=== PATIENT | male | born 1990 | race African-American/Black ===

== ENCOUNTER 2017-10-02 06:54 | Emergency (ER) | payer SELFPAY ==
[2017-10-02] MEDS ORDERED: Sodium Chloride 0.9% 2.5 ML Syringe FLUSH PRN (07:22)
[2017-10-02] MEDS ORDERED: Sodium Chloride 0.9% 10 ML Syringe FLUSH PRN (07:22)
[2017-10-02] MEDS ORDERED: Sodium Chloride 0.9% 1,000 ML IV ONE (07:22)
--- NOTE | 2017-10-02 07:33 | EDM.PDOC ---
ED HPI GENERAL MEDICAL PROBLEM - General Chief Complaint: Back Pain or Injury Stated Complaint: BACK PAIN, BLOOD IN URINE Time Seen by Provider: 10/02/17 07:03 Source of Information: Reports: Patient History Limitations: Reports: No Limitations. Denies: Uncooperative - History of Present Illness INITIAL COMMENTS - FREE TEXT/NARRATIVE: History of present illness: []Patient complained of left flank pain radiating to his left lower abdomen he is unable to state how long he's been hurting since since he has had left flank pain for months. Patient states that he has had some dark bloody stools recently. He denies any history of abdominal surgeries, kidney stones or diverticulitis. He does have a history of esophageal reflux. Patient denies any fevers, chills, nausea, vomiting or diarrhea. Review of systems: As per history of present illness and below otherwise all systems reviewed and negative. Past medical history: As per history of present illness and as reviewed below otherwise noncontributory. Surgical history: As per history of present illness and as reviewed below otherwise noncontributory. Social history: No reported history of drug or alcohol abuse. Family history: As per history of present illness and as reviewed below otherwise noncontributory. Physical exam: General: Well developed, well nourished in NAD HEENT: Atraumatic, normocephalic, pupils reactive, negative for conjunctival pallor or scleral icterus, mucous membranes moist, throat clear, neck supple, nontender, trachea midline. Lungs: Clear to auscultation, breath sounds equal bilaterally, chest nontender. Heart: S1S2, regular, negative for clicks, rubs, or JVD. Abdomen: Soft, nondistended, mild tender in the left lower quadrant with greater tenderness in the right lower quadrant with guarding, no rebound. Negative for masses or hepatosplenomegaly. Negative for costovertebral tenderness on the left or right. Pelvis: Stable nontender. Genitourinary: Deferred. Rectal: Deferred. Extremities: Atraumatic, negative for cords or calf pain. Neurovascular unremarkable. Neuro: Awake, alert, oriented. Cranial nerves II through XII unremarkable. Cerebellum unremarkable. Motor and sensory unremarkable throughout. Exam nonfocal. Skin:warm and dry Diagnostics: CBC normal, chemistry normal, lipase negative, UA negative, CT abdomen normal except for incidental 2.3 cm left hepatic lobe enhancing mass Therapeutics: IV hydration patient declined pain meds ED Course: Negative Impression: Abdominal pain NOS Prescriptions: None Plan: Tylenol or ibuprofen for pain, return immediately if symptoms worsen or change. Including fevers, chills, vomiting or worsening abdominal pain, as this may be early evolving appendicitis. Definitive disposition and diagnosis as appropriate pending reevaluation and review of above. Left Lower Back Pain Score (Numeric/FACES): 6 - Related Data Allergies Allergy/AdvReac Type Severity Reaction Status Date / Time No Known Allergies Allergy Verified 10/02/17 07:05 Home Meds: Home Meds . [No Known Home Meds] 10/02/17 [History] Past Medical History - Past Health History Medical/Surgical History: Denies Medical/Surgical History - Infectious Disease History Infectious Disease History: Reports: None Social & Family History - Family History Family Medical History: Noncontributory - Tobacco Use Smoking Status *Q: Current Every Day Smoker Years of Tobacco use: 4 Packs/Tins Daily: 1 - Caffeine Use Caffeine Use: Reports: None - Recreational Drug Use Recreational Drug Use: No ED ROS GENERAL - Review of Systems Review Of Systems: ROS reveals no pertinent complaints other than HPI. ED EXAM, GI/ABD - Physical Exam Exam: See Below (See history of present illness) Course - Vital Signs Last Recorded V/S: Last Vital Signs Temp 97.5 F 10/02/17 07:57 Pulse 56 L 10/02/17 07:57 Resp 14 10/02/17 07:57 BP 128/79 10/02/17 07:57 Pulse Ox 98 10/02/17 07:57 - Orders/Labs/Meds Orders: Active Orders 24 hr Category Date Time Status Nothing Per Oral Diet [DIET] Diet 10/02/17 Lunch Active Abdomen Pelvis w Cont [CT] Stat Exams 10/02/17 08:03 Taken URINALYSIS W/MICROSCOPIC [UA W/MICROSCOPIC] [URIN] Stat Lab 10/02/17 07:00 Ordered Sodium Chloride 0.9% [Saline Flush] Med 10/02/17 07:22 Active 10 ml FLUSH ASDIRECTED PRN Sodium Chloride 0.9% [Saline Flush] Med 10/02/17 07:22 Active 2.5 ml FLUSH ASDIRECTED PRN Saline Lock Insert [OM.PC] Stat Oth 10/02/17 07:21 Ordered Medication Orders Sodium Chloride (Saline Flush) 10 ml FLUSH ASDIRECTED PRN PRN Reason: Keep Vein Open Last Admin: 10/02/17 07:40 Dose: 10 ml Sodium Chloride (Saline Flush) 2.5 ml FLUSH ASDIRECTED PRN PRN Reason: Keep Vein Open Last Admin: 10/02/17 07:40 Dose: 2.5 ml Labs: Laboratory Tests 10/02/17 10/02/17 10/02/17 Range/Units 07:00 07:28 07:28 WBC 9.79 (4.0-11.0) K/uL RBC 5.09 (4.50-5.90) M/uL Hgb 16.1 (13.0-17.0) g/dL Hct 46.4 (38.0-50.0) % MCV 91.2 (80.0-98.0) fL MCH 31.6 (27.0-32.0) pg MCHC 34.7 (31.0-37.0) g/dL RDW Std Deviation 41.2 (28.0-62.0) fl RDW Coeff of Lashonda 12 (11.0-15.0) % Plt Count 182 (150-400) K/uL MPV 12.30 H (7.40-12.00) fL Neut % (Auto) 56.7 (48.0-80.0) % Lymph % (Auto) 31.1 (16.0-40.0) % Harding % (Auto) 7.8 (0.0-15.0) % Eos % (Auto) 3.6 (0.0-7.0) % Baso % (Auto) 0.8 (0.0-1.5) % Neut # (Auto) 5.6 (1.4-5.7) K/uL Lymph # (Auto) 3.0 H (0.6-2.4) K/uL Harding # (Auto) 0.8 (0.0-0.8) K/uL Eos # (Auto) 0.4 (0.0-0.7) K/uL Baso # (Auto) 0.1 (0.0-0.1) K/uL Nucleated RBC % 0.0 /100WBC Nucleated RBCs # 0 K/uL Sodium 139 (136-148) mmol/L Potassium 3.4 L (3.5-5.1) mmol/L Chloride 102 (98-107) mmol/L Carbon Dioxide 26.3 (21.0-32.0) mmol/L BUN 13 (7.0-18.0) mg/dL Creatinine 1.2 (0.8-1.3) mg/dL Est Cr Clr Drug Dosing 91.04 mL/min Estimated GFR (MDRD) > 60.0 ml/min Glucose 100 (74-106) mg/dL Calcium 9.0 (8.5-10.1) mg/dL Total Bilirubin 0.5 (0.2-1.0) mg/dL AST 32 (15-37) IU/L ALT 55 (14-63) IU/L Alkaline Phosphatase 65 (46-116) U/L Total Protein 7.8 (6.4-8.2) g/dL Albumin 4.3 (3.4-5.0) g/dL Globulin 3.5 (2.0-3.5) g/dL Albumin/Globulin Ratio 1.2 L (1.3-2.8) Lipase 134 (73-393) U/L Urine Color DARK YELLOW Urine Appearance HAZY Urine pH 5.5 (5.0-8.0) Ur Specific [place] >= 1.030 (1.001-1.035) Urine Protein NEGATIVE (NEGATIVE) mg/dL Urine Glucose (UA) NEGATIVE (NEGATIVE) mg/dL Urine Ketones NEGATIVE (NEGATIVE) mg/dL Urine Occult Blood NEGATIVE (NEGATIVE) Urine Nitrite NEGATIVE (NEGATIVE) Urine Bilirubin SMALL H (NEGATIVE) Urine Ictotest NEGATIVE Urine Urobilinogen 0.2 (<2.0) EU/dL Ur Leukocyte Esterase NEGATIVE (NEGATIVE) Urine RBC 0-2 (0-2/HPF) Urine WBC 0-3 (0-5/HPF) Ur Epithelial Cells RARE (NONE-FEW) Amorphous Sediment LIGHT (NEGATIVE) Urine Bacteria FEW (NEGATIVE) Urine Mucus LIGHT (NONE-MOD) Meds: Medications Generic Name Dose Route Start Last Admin Trade Name Freq PRN Reason Stop Dose Admin Sodium Chloride 10 ml 10/02/17 07:22 10/02/17 07:40 Saline Flush FLUSH 10 ml ASDIRECTED PRN Administration Keep Vein Open Sodium Chloride 2.5 ml 10/02/17 07:22 10/02/17 07:40 Saline Flush FLUSH 2.5 ml ASDIRECTED PRN Administration Keep Vein Open Discontinued Medications Generic Name Dose Route Start Last Admin Trade Name Brenna PRN Reason Stop Dose Admin Sodium Chloride 1,000 mls @ 999 mls/hr 10/02/17 07:22 10/02/17 07:39 Normal Saline IV 10/02/17 08:22 999 mls/hr .Bolus ONE Administration Iopamidol 95 ml 10/02/17 08:13 Isovue Multipack-370 (76%) IVPUSH 10/02/17 08:14 ONETIME STA Departure - Departure Time of Disposition: 09:13 Disposition: Home, Self-Care 01 Condition: Good Clinical Impression: Abdominal pain Qualifiers: Abdominal location: left lower quadrant Qualified Code(s): R10.32 - Left lower quadrant pain - Discharge Information *PRESCRIPTION DRUG MONITORING PROGRAM REVIEWED*: No Referrals: PCP,None [Primary Care Provider] - Forms: ED Department Discharge Additional Instructions: The following information is given to patients seen in the emergency department who are being discharged to home. This information is to outline your options for follow-up care. We provide all patients seen in our emergency department with a follow-up referral. The need for follow-up, as well as the timing and circumstances, are variable depending upon the specifics of your emergency department visit. If you don't have a primary care physician on staff, we will provide you with a referral. We always advise you to contact your personal physician following an emergency department visit to inform them of the circumstance of the visit and for follow-up with them and/or the need for any referrals to a consulting specialist. The emergency department will also refer you to a specialist when appropriate. This referral assures that you have the opportunity for follow-up care with a specialist. All of these measure are taken in an effort to provide you with optimal care, which includes your follow-up. Under all circumstances we always encourage you to contact your private physician who remains a resource for coordinating your care. When calling for follow-up care, please make the office aware that this follow-up is from your recent emergency room visit. If for any reason you are refused follow-up, please contact the [facility] Emergency Department at and asked to speak to the emergency department charge nurse. Tylenol or Motrin for pain, clear liquids and advance diet as tolerated, return immediately to the ER if any symptoms change or worsen such as increasing pain, fevers, vomiting, as this may be evolving early appendicitis [facility] [address] [place] [id number] - My Orders Last 24 Hours: My Active Orders 10/02/17 07:00 URINALYSIS W/MICROSCOPIC [UA W/MICROSCOPIC] [URIN] Stat 10/02/17 07:21 Saline Lock Insert [OM.PC] Stat 10/02/17 07:22 Sodium Chloride 0.9% [Saline Flush] 10 ml FLUSH ASDIRECTED PRN Sodium Chloride 0.9% [Saline Flush] 2.5 ml FLUSH ASDIRECTED PRN 10/02/17 08:03 Abdomen Pelvis w Cont [CT] Stat 10/02/17 Lunch Nothing Per Oral Diet [DIET] - Assessment/Plan Last 24 Hours: My Active Orders 10/02/17 07:00 URINALYSIS W/MICROSCOPIC [UA W/MICROSCOPIC] [URIN] Stat 10/02/17 07:21 Saline Lock Insert [OM.PC] Stat 10/02/17 07:22 Sodium Chloride 0.9% [Saline Flush] 10 ml FLUSH ASDIRECTED PRN Sodium Chloride 0.9% [Saline Flush] 2.5 ml FLUSH ASDIRECTED PRN 10/02/17 08:03 Abdomen Pelvis w Cont [CT] Stat 10/02/17 Lunch Nothing Per Oral Diet [DIET]
[2017-10-02 07:54] LABS: CHLORIDE,CL 102 mmol/L (98-107); SODIUM,NA 139 mmol/L (136-148)
[2017-10-02] MEDS ORDERED: Iopamidol 755 MG/ML 200 ML Multipack Bottle IVPUSH STA (08:13)
--- NOTE | 2017-10-04 16:51 | CT ---
EXAM DATE: 10/02/17 PATIENT'S AGE: 27 Patient: GILSON CUEVAS Facility: [place], [place] Site . Site : 1990 Study: CT Abdomen/Pelvis [id number]/11/2018 8:52:09 AM Ordering Physician: Michele Ceron Final Report: INDICATION: Left flank plain and bloody stools. TECHNIQUE: Volumetric helical scanning of the abdomen and pelvis was performed with 95 cc of Isovue 370 contrast material IV. Coronal and sagittal reconstructions were obtained. COMPARISON: None. FINDINGS: There is no evidence of bowel obstruction or inflammation. No free fluid or free air is demonstrated. The liver is normal in size and shape. On images 17-21 of series 201, but an enhancing 2.3 cm mass in the left hepatic lobe is suggested. The liver is otherwise unremarkable. No bile duct dilation is evident. The spleen is within normal limits. The adrenal glands are unremarkable. The pancreas is within normal limits. The kidneys are unremarkable. No lymphadenopathy is evident. The lung bases are clear. The heart is normal in size. IMPRESSION: 1. Etiology of left flank pain and bloody stools not evident. 2. Enhancing 2.3 cm left hepatic lobe mass suggested. Statistically, focal nodular hyperplasia most likely. MRI suggested. Please note that all CT scans at this facility use dose modulation, iterative reconstruction, and/or weight-based dosing when appropriate to reduce radiation dose to as low as reasonably achievable. Dictated by Eliseo Chaudhari MD @ Oct 02 2017 9:03AM (Electronic Signature) Report Signed by Proxy. [facility]yle
== END 2017-10-02 09:32 | disposition home or self-care (01) ==
LOC: MW.ED 06:54
DX: R10.32 Left lower quadrant pain (principal); F17.210 Nicotine dependence, cigarettes, uncomplicated
CPT/HCPCS: 36415; 74177; 80053; 81001; 83690; 85025; 96360; 99284; J7040; Q9967